=== PATIENT | female | born 1955 | race Caucasian/White ===

== ENCOUNTER 2019-02-05 16:00 | Outpatient (REF) | payer MEDICAID, SELFPAY ==
--- NOTE | 2019-02-05 15:15 | PAPFT_PTH ---
PATIENT: Noelle Ghosh LOC: [facility] U#:[id number] AGE/SX: 63/F ROOM: RE02/05/[address]: Dean Landrum : 1955 BED: DIS: 02/05/2019 SPEC #: [id number] RECD: 02/08/19 12:58 STATUS: MICAH RELilli #: [id number] [place]: 02/05/19 15:[address]: Dean Landrum DEPT: [facility] Cytology RECD BY: Jennifer Mercer Tissues: 1 - CX/ENDOCX FOR PAP SMEARS Procedures: PAP THIN PREP/UVM Screening HPV DNA PROBE Comments: [id number]
== END 2019-02-05 16:20 ==
LOC: NCHCN 16:00
PROVIDERS: PCP Internal Medicine; Visit Provider Internal Medicine
DX: Z12.4 Encounter for screening for malignant neoplasm of cervix (principal); Z11.51 Encounter for screening for human papillomavirus (HPV)
CPT/HCPCS: 88142; 87624

== ENCOUNTER 2020-02-07 17:08 | Outpatient (REF) | payer MEDICAID, SELFPAY ==
[2020-02-07 19:16] LABS: Anion Gap 9.5 mmol/L (3-11); BUN 30 mg/dL (7-18); CO2 27.5 mmol/L (21.0-32.0); CREATININE 1.17 mg/dL (0.55-1.02); Calcium 9.3 mg/dL (8.5-10.1); Chloride 103 mmol/L (98-107); Estimated GFR 46.57 (mL/min/1.73m2); Glucose 120 mg/dL (74-106); Potassium 3.8 mmol/L (3.5-5.1); Sodium 140 mmol/L (136-145); TSH 1.54 uIU/mL (0.36-3.74)
[2020-02-07 19:51] LABS: Hemoglobin A1C 6.1 % (3.8-5.6)
== END 2020-02-07 17:28 ==
LOC: NCHCN 17:08
PROVIDERS: PCP Internal Medicine; Visit Provider Internal Medicine
DX: I10 Essential (primary) hypertension (principal); R73.9 Hyperglycemia, unspecified
CPT/HCPCS: 80048; 83036; 84443

== ENCOUNTER 2020-12-11 17:02 | Outpatient (REF) | payer MEDICARE, SELFPAY ==
[2020-12-11 20:17] LABS: Anion Gap 9.3 mmol/L (3-11); BUN 42 mg/dL (7-18); CO2 27.7 mmol/L (21.0-32.0); CREATININE 1.4 mg/dL (0.55-1.02); Calcium 9.6 mg/dL (8.5-10.1); Chloride 105 mmol/L (98-107); Estimated GFR 37.74 (mL/min/1.73m2); Glucose 106 mg/dL (74-106); Potassium 4.1 mmol/L (3.5-5.1); Sodium 142 mmol/L (136-145)
== END 2020-12-11 17:03 | disposition home or self-care (01) ==
LOC: NCHCN 17:02
PROVIDERS: PCP Internal Medicine; Visit Provider Internal Medicine
DX: I10 Essential (primary) hypertension (principal); R73.03 Prediabetes
CPT/HCPCS: 80048

== ENCOUNTER 2021-04-17 11:22 | Outpatient (REF) | payer MEDICARE, SELFPAY ==
[2021-04-19 18:21] LABS: COVID-19 RT-PCR UVMMC Result Negative (Negative)
== END 2021-04-17 11:23 | disposition home or self-care (01) ==
LOC: NCHCN 11:22
PROVIDERS: PCP Internal Medicine; Visit Provider Internal Medicine
DX: Z20.822 Contact with and (suspected) exposure to COVID-19 (principal)
CPT/HCPCS: U0003

== ENCOUNTER 2021-10-17 16:10 | Outpatient (REF) | payer MEDICARE, SELFPAY ==
[2021-10-17 20:52] LABS: Hemoglobin A1C 6.2 % (<5.7)
[2021-10-17 21:06] LABS: Anion Gap 8.2 mmol/L (3-11); BUN 34 mg/dL (7-18); CO2 28.8 mmol/L (21.0-32.0); CREATININE 1.1 mg/dL (0.55-1.02); Calcium 9.6 mg/dL (8.5-10.1); Chloride 104 mmol/L (98-107); Estimated GFR 49.69 (mL/min/1.73m2); Glucose 111 mg/dL (74-106); Potassium 4.4 mmol/L (3.5-5.1); Sodium 141 mmol/L (136-145); TSH 1.62 uIU/mL (0.36-3.74)
== END 2021-10-17 16:11 | disposition home or self-care (01) ==
LOC: NCHCN 16:10
PROVIDERS: PCP Internal Medicine; Visit Provider Nurse Practitioner Family
DX: I10 Essential (primary) hypertension (principal); R07.9 Chest pain, unspecified; R49.0 Dysphonia; R73.03 Prediabetes
CPT/HCPCS: 80048; 83036; 84443

== ENCOUNTER 2021-10-25 01:33 | Outpatient (CLI) | payer MEDICARE, SELFPAY ==
--- NOTE | 2021-10-25 15:00 | ETT_ITS ---
APPROVED REPORT Exam: Exercise Treadmill Patient Location: Out-Patient Room/Bed: Stress Nurse: Gina Miller, RN, Katja Adrian RN Ordering Provider:MALKALUPILLO DUMONT, Contact Number: [phone] BMI: 33.89 Baseline Rhythm: Sinus Bradycardia Comment: PVC's w/ V3 t wave inversion Indications: Chest Pain Medical History Medical History: Pre diabetes, HTN, bradycardia, mitral valve prolapse Cardiac Medications: Lisinopril Allergies: prednison Cardiac Risk Factors: family history, htn diabetes Previous Cardiac Procedures: None Pretest Chest Pain Characteristics: none Exercise History: Sedentary Physical Disabilities: none Lung Sounds: Clear/diminished bilaterally Heart Sounds: Regular Stress Test Details Test: Exercise stress testing was performed using a Carlos protocol. Rest Stress HR Resting HR Supine: 49 bpm Max Heart Rate (APMHR): 154 bpm Resting HR Standin bpm Target HR (85% APMHR): 130 bpm Max HR Achieved: 133 bpm % of APMHR: 86 Recovery HR: 69 bpm HR response to stress: Normal HR response to stress BP Resting BP Supine: 144/92 mmHg Resting BP Standin/78 mmHg Max BP: 198/82 mmHg Recovery BP: 140/62 mmHg BP response to stress: Normal blood pressure response to stress. ECG Resting ECG: Sinus Bradycardia Ectopy: PVC's Comment: Inverted T wave in V3 Stress ECG: Sinus Tachycardia ST Change: No significant ST segment changes noted Arrhythmia: PVC's, increasing in frequency as stages increased, noted increased ectopy in stage 3 specifically, multifocal PVC's, couplets Recovery ECG: Sinus Rhythm Recovery ST Change: No significant ST segment changes noted Recovery Arrhythmia: VPC Clinical Reason for Termination: Fatigue, Dyspnea Stress Symptoms: Dizziness, Dyspnea Exercise duration: 7 min54 sec Highest Stage Reached: Stage 3: 3.4 mph at 14% grade. Exercise capacity: 10.16 METs Santana Treadmill Score: 8 Rate Pressure Product: [id number] Stress ECG Conclusion 1. The resting electrocardiogram was within normal limits 2. Patient exercised on the Carlos protocol completed a workload of 10.16 METS, stopping due to shortn ess of breath and dizziness 3. Normal heart rate and blood pressure response to exercise. The patient achieved 86% of predicted heart rate for age 4. The electrocardiographic portion of the test was negative for myocardial ischemia 5. PVCs were noted Santana Treadmill Score is 8 which is Low risk. Stress Test Summary STAGE Time (mins) Speed (mph) Grade (%) HR BP SYMPTOMS METS Supine 49 144/92 Standing 62 130/78 1 3 1.7 10 98 158/74 4.6 2 6 2.5 12 112 170/80 7 1 min recovery 112 198/82 Dizziness 3 min recovery 78 178/72 Dizziness resolved 6 min recovery 69 140/62 Patient reported dizziness upon immediate cessation of exercise. Accompanied to stretcher from treadm ill and resolved quickly with rest. No other symptoms reported.
== END 2021-10-25 01:53 ==
PROVIDERS: PCP Internal Medicine; Visit Provider Nurse Practitioner Family
DX: R07.89 Other chest pain (principal)
CPT/HCPCS: 93016; 93018; 93017

== ENCOUNTER 2022-07-29 14:52 | Outpatient (REF) | payer MEDICARE, SELFPAY ==
[2022-07-29 19:31] LABS: Abs Immature Grans 0.02 10^3/uL (0.0-0.06); Absolute Basophil Count 0.02 10^3/uL (0.0-0.2); Absolute Eosinophil Count 0.61 10^3/uL (0.0-0.7); Absolute Lymphocyte Count 1.29 10^3/uL (1.2-3.4); Absolute Monocyte Count 0.34 10^3/uL (0.1-0.8); Absolute Neutrophil Count 3.83 10^3/uL (1.2-6.7); Basophils % 0.3; HCT 40.4 % (36.0-46.0); Immature Grans % 0.3; Lymphocytes % 21.1; MCH 30.2 pg (27.0-33.0); MCHC 32.2 % (32.0-36.0); MCV 94 fL (80-95); MPV 10.7 fL (8.0-11.0); Monocytes % 5.6; Neutrophils % 62.7; Platelet Count 254 10^3/uL (130-400); RBC 4.31 10^6/uL (3.93-5.22); RDW 12.6 % (11.7-14.6); WBC 6.11 10^3/uL (4.4-10.8)
[2022-07-29 19:33] LABS: ESR 31 mm/hr (0-30)
[2022-07-29 19:50] LABS: C-Reactive Protein 0.54 mg/dL (0.0-0.3); Uric Acid 6.6 mg/dL (2.6-6.0)
[2022-07-30 17:19] LABS: Rheumatoid Factor <8.6 IU/mL (<12.0)
[2022-07-31 13:36] LABS: ANA Interpretation Negative (Negative)
== END 2022-07-29 14:53 | disposition home or self-care (01) ==
LOC: NCHCN 14:52
PROVIDERS: PCP Internal Medicine; Visit Provider Nurse Practitioner Family
DX: M79.641 Pain in right hand (principal); R60.0 Localized edema; R70.0 Elevated erythrocyte sedimentation rate; R79.82 Elevated C-reactive protein (CRP)
CPT/HCPCS: 85652; 84550; 85025; 86038; 86140; 86431

== ENCOUNTER 2022-08-02 17:52 | Outpatient (REF) | payer MEDICARE, SELFPAY ==
[2022-08-02 19:46] LABS: ALT 20 U/L (14-59); AST 19 U/L (15-37); Alkaline Phosphatase 92 U/L (46-116); Anion Gap 9.8 mmol/L (3-11); BUN 34 mg/dL (7-18); Bilirubin, Total 0.2 mg/dL (0.2-1.0); CO2 28.2 mmol/L (21.0-32.0); CREATININE 1.2 mg/dL (0.55-1.02); Calcium 9.8 mg/dL (8.5-10.1); Chloride 107 mmol/L (98-107); Estimated GFR 49.92 (mL/min/1.73m2); Glucose 96 mg/dL (74-106); Potassium 4.8 mmol/L (3.5-5.1); Sodium 145 mmol/L (136-145); Total Protein 7.7 g/dL (6.4-8.2)
== END 2022-08-02 17:53 | disposition home or self-care (01) ==
LOC: NCHCN 17:52
PROVIDERS: PCP Internal Medicine; Visit Provider Physician Assistant
DX: M10.9 Gout, unspecified (principal)
CPT/HCPCS: 80053

== ENCOUNTER 2022-11-13 18:11 | Outpatient (REF) | payer MEDICARE, SELFPAY ==
[2022-11-13 19:59] LABS: Hemoglobin A1C 6.2 % (<5.7)
[2022-11-13 20:06] LABS: Calculated LDL 68 mg/dL (<100); Cholesterol 154 mg/dL (<200); HDL Cholesterol 65 mg/dL (40-60); TSH 1.82 uIU/mL (0.36-3.74); Triglyceride 107 mg/dL (<150)
== END 2022-11-13 18:12 | disposition home or self-care (01) ==
LOC: NCHCN 18:11
PROVIDERS: PCP Internal Medicine; Visit Provider Internal Medicine
DX: E04.1 Nontoxic single thyroid nodule (principal); I10 Essential (primary) hypertension; R73.03 Prediabetes
CPT/HCPCS: 80061; 83036; 84443

== ENCOUNTER 2024-10-04 15:42 | Outpatient (REF) | payer MEDICARE, SELFPAY ==
[2024-10-04 19:56] LABS: Anion Gap 8.6 mmol/L (3-11); BUN 42 mg/dL (7-18); CO2 29.4 mmol/L (21.0-32.0); CREATININE 1.2 mg/dL (0.55-1.02); Calcium 10.6 mg/dL (8.5-10.1); Calculated LDL 96 mg/dL (<100); Chloride 107 mmol/L (98-107); Cholesterol 187 mg/dL (<200); Glucose 110 mg/dL (74-106); HDL Cholesterol 74 mg/dL (>or=50); Potassium 4.2 mmol/L (3.5-5.1); Sodium 145 mmol/L (136-145); Triglyceride 85 mg/dL (<150)
== END 2024-10-04 15:43 | disposition home or self-care (01) ==
LOC: NCHCN 15:42
PROVIDERS: PCP Internal Medicine; Visit Provider Internal Medicine
DX: I10 Essential (primary) hypertension (principal)
CPT/HCPCS: 80048; 80061